=== PATIENT | female | born 1965 | race Asian ===

== ENCOUNTER 2021-08-03 16:16 | Emergency (ER) | payer OTHER ==
[2021-08-03 16:30] VITALS: BP 114/77; PULSE 96; TEMP 99.6; BMI 27.6
== END 2021-08-03 20:39 | disposition home or self-care (01) ==
LOC: JER 16:16
DX: M25.562 Pain in left knee (principal)
CPT/HCPCS: 73562-TC-LT-FY; 93971-TC; 99284-25